=== PATIENT | female | born 1995 | race Hispanic/Latino ===

== ENCOUNTER 2023-11-22 09:31 | Emergency (ER) | payer OTHER, SELFPAY ==
[2023-11-22 09:41] VITALS: BP 123/89
[2023-11-22] MEDS: NSS 500 IV (09:56)
[2023-11-22 10:03] LABS: % Basophils 0.4 % (0-2); % Eosinophils 0.7 % (0-6); % Immature Granulocytes 0.6 % (0-0.5); % Lymphocytes 24.7 % (20.5-51.1); % Monocytes 9.7 % (1.7-9.3); % Neutrophils 63.9 % (42.2-75.2); Absolute Eosinophils 0.1 10^3/uL (0-0.7); Absolute Immature Granulocytes 0.1 10^3/uL (0-0.05); Absolute Monocytes 0.8 10^3/uL (0.1-0.6); Absolute Neutrophils 5.3 10^3/uL (1.4-6.5); Hematocrit 35.6 % (37.0-47.0); Hemoglobin 11.3 g/dL (12.0-16.0); Mean Corp Hgb Conc. 31.7 g/dL (33.0-37.0); Mean Corpuscular Hgb 24.2 pg (27.0-31.0); Mean Corpuscular Volume 76.2 fL (81.0-99.0); Mean Platelet Volume 10.2 fL (7.4-10.4); Nucleated Red Blood Cells % 0 %; Platelet Count 366 10^3/uL (130-400); Red Blood Cell Count 4.67 10^6/uL (4.20-5.40); Red Cell Dist. Width 14.9 % (11.5-14.5); White Blood Cell Count 8.2 10^3/uL (4.8-10.8)
[2023-11-22 10:16] LABS: HCG, Serum Qualitative Screen Negative
[2023-11-22 10:24] LABS: ALT (SGPT) 28 U/L (0-35); AST (SGOT) 27 U/L (14-36); Albumin 4.5 g/dl (3.5-5.0); Alkaline Phosphatase 74 U/L (38-126); Blood Urea Nitrogen 13 mg/dl (7-17); Calcium 9.1 mg/dl (8.4-10.2); Carbon Dioxide 24 mmol/L (22-30); Chloride 109 mmol/L (98-107); Glucose 112 mg/dl (70-99); Lipase 130 U/L (23-300); Potassium 4.1 mmol/L (3.5-5.1); Sodium 139 mmol/L (135-145); Total Bilirubin 0.4 mg/dl (0.2-1.3); Total Protein 7.7 g/dl (6.3-8.2); eGFR > 60.00
[2023-11-22 10:57] LABS: Urine Albumin Negative (Neg - Trace); Urine Bilirubin Negative (Negative); Urine Character Clear (Clear); Urine Color Yellow; Urine Glucose Negative (Negative); Urine Ketone Negative (Negative); Urine Leukocyte 1+ (Negative); Urine Nitrite Negative (Negative); Urine Occult Blood Negative (Negative); Urine Specific Gravity 1.015 (<1.030); Urine Urobilinogen Negative (Neg - 1+)
--- NOTE | 2023-11-22 10:57 | ED.GENMED ---
History of Present Illness
General
Chief Complaint: Flank Pain
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
Exam Limitations: none
Time Seen by Provider: 11/22/23 09:45
Travel History
Have you had any contact with someone who has COVID-19?: No
Do you have any symptoms of coronavirus? Fever > 100 degrees, chills, cough, shortness of breath, sore throat, loss of taste or smell, muscle aches, or headache?: No
History of Present Illness
History of Present Illness:
28-year-old female relatively sudden onset of left flank pain. Started this morning. Some nausea. No urinary symptoms no fever menses are normal. No other complaints. No preceding pain management
Past History
Past History
ED Past Medical History: None
ED Past Surgical History: Appendectomy
Social History
Tobacco: Non-smoker
Alcohol: None
Review of Systems
Review of Systems
All Other Systems: Not applicable
Constitutional: Denies fever
Respiratory: Reports no symptoms
Cardiac: Reports no symptoms
: Denies dysuria or frequency
Phy Exam
Physical Exam
Physical Exam:
GENERAL: Alert and oriented in no apparent distress
EYE: Orbits normal.
NECK: Supple, no significant adenopathy.
CARDIAC: Regular rate and rhythm without any obvious murmurs.
LUNGS: Clear breath sounds,normal
ABDOMEN: Soft, bowel sounds present. No distention. Mild left lower quadrant tenderness. No deep pelvic tenderness. No rebound or guarding no mass or hernia. No CVA tenderness. I do not appreciate any significant umbilical hernia. However
patient is nontender periumbilically
NEUROLOGICAL: Alert and oriented , grossly non-focal
SKIN: Warm and dry, no rash or lesion, no discoloration, skin intact.
MUSCULOSKELETAL: No edema,no deformity.Good color
PSYCH: Normal and appropriate interaction.
Course
Orders/Labs/Results
Orders:
Orders
11/22/23 09:46
IV Insert/Care/Rem.- Treatment PRN
0.9% Sodium Chloride 500 ml [Nss] 500 ml IV BOLUS
Test Result ONCE
11/22/23 09:55
Complete Blood Count/With Diff Urgent
Comprehensive Metabolic Panel Urgent
HCG, Serum Qualitative Screen Urgent
Lipase Urgent
11/22/23 10:37
Urinalysis Reflex To Culture Urgent
Date Specimen was Collected: 11/22/23
Time Specimen was Collected: 10:36
Urine Microscopic Reflex Cult Urgent
Urine Culture Urgent
SALVADOR Source: U
Specimen Description:
Date Specimen was Collected: 11/22/23
Time Specimen was Collected: 10:36
11/22/23 10:54
CT Abd/pel Without Iv Or Oral Urgent
Comment:
Reason For Exam: Sudden left flank pain
IV Insert/Care/Rem.- Treatment PRN
0.9% Sodium Chloride 1000 ml [Nss] 1,000 ml IV BOLUS
Ketorolac [Toradol] 15 mg IV NOW STA
11/22/23 12:35
US Pelvis Only (non-obstetric) Urgent
Comment:
Reason For Exam: Left pelvic pain.
Abnormal Lab Results
11/22/23 11/22/23
09:55 10:37
Hgb 11.3 L g/dL
(12.0-16.0)
Hct 35.6 L %
(37.0-47.0)
MCV 76.2 L fL
(81.0-99.0)
MCH 24.2 L pg
(27.0-31.0)
MCHC 31.7 L g/dL
(33.0-37.0)
RDW 14.9 H %
(11.5-14.5)
Abs Immat Gran (auto) 0.1 H 10^3/uL
(0-0.05)
Absolute Monos (auto) 0.8 H 10^3/uL
(0.1-0.6)
Immature Gran % 0.6 H %
(0-0.5)
Monocytes % 9.7 H %
(1.7-9.3)
Chloride 109 H mmol/L
(98-107)
Glucose 112 H mg/dl
(70-99)
Leukocyte Esterase Rfl 1+ A
(Negative)
Urine Bacteria (Reflex) Few A
(Negative)
11/22/23 09:55
11/22/23 09:55
Vital Signs
Initial and Last Documented VS:
Initial Vital Signs
Temp Pulse Resp BP Pulse Ox
98.1 F 103 18 123/89 100
11/22/23 09:41 11/22/23 09:41 11/22/23 09:41 11/22/23 09:41 11/22/23 09:41
Last Documented Vital Signs
Temp Pulse Resp BP Pulse Ox
98 F 74 18 122/86 97
11/22/23 13:08 11/22/23 13:08 11/22/23 13:08 11/22/23 13:08 11/22/23 13:08
MDM/Problems Addressed
Differential Diagnosis Includes:
Relatively sudden left flank pain. Kidney stone kidney infection, ovarian issue although doubt. Diverticulitis. Workup in progress.
*Radiology
Radiology exam reviewed: radiology read reviewed (Negative CT negative ultrasound. Fat-containing umbilical hernia)
*Pulse Oximetry
Patient hypoxic: no
*Critical Care Note
Total Time (30-74mins, 75-104mins- exclusive of procedures): Not Applicable
Update Note
Update Note:
Patient is clinically stable and nontoxic. Feels well. No serious etiology found. Discharged to follow-up
ED Attending Note
-
Portions of this chart may have been created with voice recognition software.� Occasional wrong word or��sound alike� substitutions may have occurred due to the inherent limitations of voice recognition software.
Discharge Plan
Departure
Patient Disposition: Home (Routine Discharge)
Date of Disposition: 11/22/23
Time of Disposition: 15:14
Patient with high blood pressure during this ER visit?: Yes
Discharge Problem:
Left flank pain, Incidental umbilical hernia
Instructions: Flank Pain (DC), Umbilical Hernia, Adult, BLOOD PRESSURE
Prescriptions:
No Action
prenat.vits,chey,oey-volr-dvctg [ Formula] 1 TAB tablet
1 tab PO DAILY
Referrals:
Keo Cruz MD [Family Provider] - Follow up in 2-3 days
Interventions
Interventions:
*Risk Screen - Suicide Last Done: 11/22/23 09:59
*General Assessment Last Done: 11/22/23 09:59
*Neglect/Abuse Screening Last Done: 11/22/23 09:59
HS-Xwxkqn-Daathbmcsm Assessment Last Done: 11/22/23 10:00
ED-Female Genitourinary Assessment Last Done: 11/22/23 10:00
[2023-11-22] MEDS: TORADOL 15 MG IV (10:58)
[2023-11-22] MEDS: NSS 1000 IV (10:58)
[2023-11-22 11:00] VITALS: BP 121/89
[2023-11-22 11:11] LABS: Urine Red Blood Cell 0-2 /HPF (0-2)
[2023-11-22 11:12] LABS: Urine Bacteria Few (Negative)
[2023-11-22 13:08] VITALS: BP 122/86
[2023-11-22 15:38] VITALS: BP 119/80
== END 2023-11-22 15:41 | disposition home or self-care (01) ==
LOC: EMR 09:31
PROVIDERS: EMERGENCY PHYSICIAN Emergency Medicine; FAMILY PHYSICIAN Internal Medicine
DX: R10.9 Unspecified abdominal pain (principal); K42.9 Umbilical hernia without obstruction or gangrene; R03.0 Elevated blood-pressure reading, without diagnosis of hypertension
CPT/HCPCS: 99284; 96374; 96361; 74176; 76856; 80053; 81003; 81015; 83690; 84703; 85025; 87086

== ENCOUNTER 2024-07-11 07:37 | Emergency (ER) | payer OTHER, SELFPAY ==
[2024-07-11 07:46] VITALS: BMI 27.4
[2024-07-11 07:51] VITALS: BP 130/61
[2024-07-11 08:16] LABS: % Basophils 0.3 % (0-2); % Eosinophils 0.8 % (0-6); % Immature Granulocytes 0.5 % (0-0.5); % Lymphocytes 19.5 % (20.5-51.1); % Monocytes 13.4 % (1.7-9.3); % Neutrophils 65.5 % (42.2-75.2); Absolute Eosinophils 0.1 10^3/uL (0-0.7); Absolute Lymphocytes 1.7 10^3/uL (1.2-3.4); Absolute Monocytes 1.2 10^3/uL (0.1-0.6); Absolute Neutrophils 5.8 10^3/uL (1.4-6.5); Hematocrit 35.5 % (37.0-47.0); Hemoglobin 11.9 g/dL (12.0-16.0); Mean Corp Hgb Conc. 33.5 g/dL (33.0-37.0); Mean Corpuscular Hgb 27.2 pg (27.0-31.0); Mean Corpuscular Volume 81.2 fL (81.0-99.0); Mean Platelet Volume 10.4 fL (7.4-10.4); Nucleated Red Blood Cells % 0 %; Platelet Count 311 10^3/uL (130-400); Red Blood Cell Count 4.37 10^6/uL (4.20-5.40); Red Cell Dist. Width 13.2 % (11.5-14.5); White Blood Cell Count 8.8 10^3/uL (4.8-10.8)
[2024-07-11 08:20] LABS: Urine Albumin 1+ (Neg - Trace); Urine Bilirubin Negative (Negative); Urine Character Slightly Cloudy (Clear); Urine Glucose Negative (Negative); Urine Ketone Negative (Negative); Urine Leukocyte 2+ (Negative); Urine Nitrite Negative (Negative); Urine Occult Blood 4+ (Negative); Urine Specific Gravity 1.015 (<1.030); Urine Urobilinogen 1+ (Neg - 1+)
[2024-07-11 08:24] LABS: HCG, Serum Qualitative Screen Negative
[2024-07-11 08:26] LABS: ALT (SGPT) 23 U/L (0-35); AST (SGOT) 22 U/L (14-36); Albumin 4.4 g/dl (3.5-5.0); Alkaline Phosphatase 55 U/L (38-126); Blood Urea Nitrogen 11 mg/dl (7-17); Calcium 8.9 mg/dl (8.4-10.2); Carbon Dioxide 21 mmol/L (22-30); Chloride 108 mmol/L (98-107); Estimated Creatinine Clearance > 125 ml/min; Glucose 102 mg/dl (70-99); Lipase 127 U/L (23-300); Potassium 4.1 mmol/L (3.5-5.1); Sodium 140 mmol/L (135-145); Total Bilirubin 0.9 mg/dl (0.2-1.3); Total Protein 7.1 g/dl (6.3-8.2); eGFR > 60.00
--- NOTE | 2024-07-11 08:28 | ED.GENMED ---
History of Present Illness
General
Chief Complaint: Abdominal Pain
Source: patient
Exam Limitations: none
Time Seen by Provider: 07/11/24 07:56
Nursing documentation reviewed up to this point in time: agreed with
History of Present Illness
History of Present Illness:
28 y/o F with remote appendectomy
says she ate chipotle last night around 7 pm and she stated to feel bloated
she developed pain soon after, periumbilical at maximum but mostly generalized
it has waxed and waned spontaneously overnight
pt did not sleep
no meds tried
denies nausea, vomiting, diarrhea, constipation
last bm yesterday
on day 2 of menses
h/o anemia from menorrhagia, no transfusions
no concern for STI
no vaginal discharge, urinary sypmtoms,r adiation of pain to back
03/18 currently up to 07/18 when pain is severe
Past History
Past History
ED Past Medical History: Other (anemia)
ED Past Surgical History: Appendectomy
Social History
Tobacco: Non-smoker
Alcohol: None
Review of Systems
Review of Systems
Allergies reviewed?: Yes
All Other Systems: Not applicable
Phy Exam
Physical Exam
Physical Exam:
GENERAL: Alert , in no apparent distress
EYE: pupils equal and reactive
NECK: Supple
ENT: o/p clr, mmm.
CARDIAC: Regular rate and rhythm .
LUNGS: Clear breath sounds bilaterally, no acute respiratory distress, no wheezes/rales/rhonchi
ABDOMEN: Soft, diffuse moderate tenderness,; most significant tendenres periumbilical region, , no cvat, normal bowel sounds
NEUROLOGICAL: Alert and oriented, no focal neuro deficits
SKIN: Warm and dry, skin intact.
MUSCULOSKELETAL: No edema, well perfused.
PSYCH: Normal and appropriate interaction.
Course
Orders/Labs/Results
Orders:
Orders
07/11/24 07:52
Test Result ONCE
07/11/24 08:02
CMP [Comprehensive Metabolic Panel] Urgent
Complete Blood Count/With Diff Urgent
HCG, Serum Qualitative Screen Urgent
Lipase Urgent
Urinalysis Reflex To Culture Urgent
Date Specimen was Collected: 07/11/24
Time Specimen was Collected: 07:52
Urine Microscopic Reflex Cult Urgent
Urine Culture Urgent
SALVADOR Source: U
Specimen Description:
Date Specimen was Collected: 07/11/24
Time Specimen was Collected: 07:52
07/11/24 08:25
CT Abd/Pel (IV only)-DH only Urgent
Comment:
Reason For Exam: diffuse abd pain, diffuse tenderness;
0.9% Sodium Chloride 1000 ml [Nss] 1,000 ml IV BOLUS
Ketorolac [Toradol] 15 mg IV NOW STA
Morphine Sulfate 2 mg IV NOW STA
Abnormal Lab Results
07/11/24
08:02
Hgb 11.9 L g/dL
(12.0-16.0)
Hct 35.5 L %
(37.0-47.0)
Absolute Monos (auto) 1.2 H 10^3/uL
(0.1-0.6)
Lymphocytes % 19.5 L %
(20.5-51.1)
Monocytes % 13.4 H %
(1.7-9.3)
Chloride 108 H mmol/L
(98-107)
Carbon Dioxide 21 L mmol/L
(22-30)
Creatinine 0.5 L mg/dL
(0.6-1.0)
Glucose 102 H mg/dl
(70-99)
Ur Occult Blood Reflex 4+ A
(Negative)
Leukocyte Esterase Rfl 2+ A
(Negative)
Urine RBC >100 A /HPF
(0-2)
Urine WBC (Reflex) 50-60 A /HPF
(0-5)
Urine Bacteria (Reflex) Few A
(Negative)
Urine Albumin (Reflex) 1+ A
(Neg - Trace)
07/11/24 08:02
07/11/24 08:02
Vital Signs
Initial and Last Documented VS:
Initial Vital Signs
Temp Pulse Resp Pulse Ox
98.1 F 78 16 98
07/11/24 07:39 07/11/24 07:39 07/11/24 07:39 07/11/24 07:39
Last Documented Vital Signs
Temp Pulse Resp BP Pulse Ox
98.1 F 78 16 100/62 100
07/11/24 07:39 07/11/24 07:39 07/11/24 07:39 07/11/24 10:00 07/11/24 10:30
MDM/Problems Addressed
Differential Diagnosis Includes:
ileus, colitis, bloating, gas pain, hernia, dysmenorrhea,
MDM/Problems Addressed:
28 y/o F
preivous appendectomy
on menses x 2 days
pain last night after eating chipotle, felt bloated afterward and has had crampy abd pain waxing and waning all night
uncomfortable with movement
no naues/avomiting/diarrhea
no urinary sypmtoms
menstrual cycle normal for her
on exam diffuse tendernesss, most specifically umbilical region
but no reboundguarding
well appearing otherwise
no pelvic pain
labs reviewed, hg stable, urine is likely ocntaminated with blood from menses
lfts normal
ct shows small area of enteritis/ileitis
incidetnal finding of L renal lesion seen previously; pt told about this, given copy and recommended to have follow up
pain well controlled now
bentyl tid prn
bland diet
reutnr precautions.
*Critical Care Note
Total Time (30-74mins, 75-104mins- exclusive of procedures): Not Applicable
ED Attending Note
-
Portions of this chart may have been created with voice recognition software.� Occasional wrong word or��sound alike� substitutions may have occurred due to the inherent limitations of voice recognition software.
Discharge Plan
Departure
Patient Disposition: Home (Routine Discharge)
Date of Disposition: 07/11/24
Time of Disposition: 10:36
Patient with high blood pressure during this ER visit?: No
Covid-19: Not Applicable
Discharge Problem:
Enteritis, Abdominal pain
Instructions: Clear Liquid Diet, Abdominal Pain
Prescriptions:
New
dicyclomine 20 mg tablet
20 mg PO TID PRN (Reason: abdominal pain) Qty: 12 0RF
Referrals:
Geoffrey Palomares DO [Family Provider] -
Diana Cox DO [Active] - Follow up in 1 week (gi doctor )
Activity Restrictions/Additional Instructions:
Your abdominal pain is likely from a virus. you had a little inflammation in your small bowel - which is likely the cause of the pain. you could end up developing vomiting and diarrhea. try motrin every 8 hours as needed for pain. take bentyl 20
mg 3 times a day as needed for crampy abdominal pain. if no pain, you do not need this medication
eat a bland diet or stick to clear liquids for today
if you get diarrhea you can use the BRAT diet (bananas, rice, applesauce, toast)
you can also use tylenol or peptobismol for pain as well.
return for : severe pain, fever, repeated vomiting, severe dehydration or diarrhea or any concerns.
Es probable que archer dolor abdominal se deba a un virus. Ten�a lamin una�a inflamaci�n en el intestino garcia, que probablemente sea la causa del dolor. podr�a terminar desarrollando v�mitos y diarrea. Pruebe Motrin cada 8 horas seg�n sea
necesario para el dolor. tome bentyl 20 mg 3 veces al d�a seg�n sea necesario para el dolor abdominal tipo c�francine. Si no hay dolor, no necesita ronn medicamento
Coma lamin dieta blanda o tome l�quidos flaquita por hoy.
si te da diarrea puedes utilizar la dieta BRAT (pl�tanos, arroz, pur� de manzana, tostadas)
Tambi�n puedes usar tylenol o peptobismol para el dolor.
Regrese por: dolor douglas, fiebre, v�mitos repetidos, deshidrataci�n severa o diarrea o cualquier inquietud.
Interventions
Interventions:
*Risk Screen - Suicide Last Done: 07/11/24 07:39
*General Assessment Last Done: 07/11/24 07:49
*Neglect/Abuse Screening Last Done: 07/11/24 07:39
ED- Fall Risk Assessment Last Done: 07/11/24 07:46
*ED COVID-19 Vaccine History Last Done: 07/11/24 07:45
NK-Qocnqj-Xyqeuyrlyh Assessment Last Done: 07/11/24 08:05
Discharge Date and Time
Print Language: ARABIC
[2024-07-11 08:35] VITALS: BP 118/81
[2024-07-11] MEDS: TORADOL 15 MG IV (08:37)
[2024-07-11] MEDS: NSS 1000 IV (08:38)
[2024-07-11] MEDS: MORPHINE SULFATE 2 MG IV (08:38)
[2024-07-11 08:47] LABS: Urine Color Red
[2024-07-11 08:48] LABS: Urine Red Blood Cell >100 /HPF (0-2)
[2024-07-11 08:49] LABS: Urine White Cell 50-60 /HPF (0-5)
[2024-07-11 08:50] LABS: Urine Bacteria Few (Negative)
[2024-07-11 09:26] VITALS: BP 122/80
[2024-07-11 10:00] VITALS: BP 100/62
[2024-07-11 10:46] VITALS: BP 100/75
== END 2024-07-11 10:47 | disposition home or self-care (01) ==
LOC: EMR 07:37
PROVIDERS: EMERGENCY PHYSICIAN Emergency Medicine; FAMILY PHYSICIAN Internal Medicine
DX: K52.9 Noninfective gastroenteritis and colitis, unspecified (principal); R10.33 Periumbilical pain; Z90.49 Acquired absence of other specified parts of digestive tract
CPT/HCPCS: 99284; 96374; 96375; 96361; 74177; 80053; 81003; 81015; 83690; 84703; 85025; 87086; Q9967